=== PATIENT | male | born 1935 | race Caucasian/White ===

== ENCOUNTER 2021-11-17 13:01 | Outpatient (CLI) | payer MEDICARE ==
[2021-11-17 14:16] LABS: Hemoglobin 12.4 g/dL (13.5-17.5); Mean Corpuscular HGB CONC 32.5 g/dL (32.0-36.0); Mean Corpuscular Hemoglobin 28.9 pg (27.0-33.0); Mean Corpuscular Volume 88.8 fl (81.2-95.1); Mean Platelet Volume 10.2 fl (7.4-10.4); Platelet Count 221 10x3/uL (150-450); RBC Distribution Width 13.3 % (11.5-14.5); Red Blood Cell (RBC) Count 4.29 10x6/uL (4.32-5.72)
[2021-11-17 14:35] LABS: Anion Gap 13 mmol/L (10-20); BUN (Urea Nitrogen) 29 mg/dL (8.4-25.7); Calc. Creatinine Clearance 0 mL/min (70-130); Calcium 8.9 mg/dL (7.8-10.44); Carbon Dioxide 23 mmol/L (23-31); Chloride 110 mmol/L (98-107); Estimated GFR 56; Glucose 90 mg/dL (83-110); Potassium 4.6 mmol/L (3.5-5.1); Sodium 141 mmol/L (136-145)
== END 2021-11-17 13:02 | disposition home or self-care (01) ==
LOC: LABBT 13:01
PROVIDERS: ATTEND Otolaryngology Plastic Surgery within the Head & Neck
DX: Z01.818 Encounter for other preprocedural examination (principal); D36.9 Benign neoplasm, unspecified site; L98.9 Disorder of the skin and subcutaneous tissue, unspecified; L81.9 Disorder of pigmentation, unspecified; Z20.822 Contact with and (suspected) exposure to COVID-19
CPT/HCPCS: 80048; 85027; 87811

== ENCOUNTER 2021-11-22 08:41 | Day surgery (SDC) | payer MEDICARE ==
[2021-11-20 12:25] VITALS: BMI 27.1
[2021-11-22] MEDS ORDERED: Oxymetazoline HCl 0.05% (30 ML BOT) ONE ×2 (09:19→10:51)
[2021-11-22] MEDS ORDERED: Lidocaine 1% MPF 2 ML VIAL ONE (09:20)
[2021-11-22] MEDS ORDERED: Bacitracin Zinc Ointment 30 gm TUBE ONE (10:51)
[2021-11-22] MEDS ORDERED: Lidocaine 1% w/Epinephrine 1:200K 30 ML VIAL ONE (10:51)
[2021-11-22] MEDS ORDERED: Famotidine/PF 20 mg/2ml Vial ONE (10:52)
[2021-11-22] MEDS ORDERED: fentaNYL Citrate/PF 100 MCG/2 ML SYRINGE ONE (10:52)
[2021-11-22] MEDS ORDERED: Lidocaine 1% PF 5 ML VIAL ONE (11:06)
[2021-11-22] MEDS ORDERED: ePHEDrine 50 MG/ML VIAL ONE (11:06)
[2021-11-22] MEDS ORDERED: Metoclopramide HCl 10 MG/2 ML VIAL ONE (11:06)
[2021-11-22] MEDS ORDERED: PROPOFOL 200 MG/20 ML VIAL ONE (11:06)
[2021-11-22] MEDS ORDERED: Glycopyrrolate 0.2 MG/ML 5 ML SYRINGE ONE (11:06)
[2021-11-22] MEDS ORDERED: Rocuronium Bromide 10 MG/ML (10ML VIAL) ONE (11:06)
[2021-11-22] MEDS ORDERED: Dexamethasone 20 MG/5 ML VIAL ONE (11:06)
[2021-11-22] MEDS ORDERED: Ondansetron PF 4 MG/2 ML Vial ONE (11:06)
[2021-11-22] MEDS ORDERED: SUGAMMADEX SODIUM 200 MG/2 ML VIAL ONE (11:48)
== END 2021-11-22 13:55 | disposition home or self-care (01) ==
LOC: SDC 08:41
PROVIDERS: ATTEND Otolaryngology Plastic Surgery within the Head & Neck
PROC: 09SM0ZZ Reposition Nasal Septum, Open Approach (ICD-10-PCS; principal; 2021-11-22)
PROC: 09BM0ZZ Excision of Nasal Septum, Open Approach (ICD-10-PCS; 2021-11-22)
DX: D14.0 Benign neoplasm of middle ear, nasal cavity and accessory sinuses (principal); J34.2 Deviated nasal septum; E78.5 Hyperlipidemia, unspecified; I25.10 Atherosclerotic heart disease of native coronary artery without angina pectoris; G47.30 Sleep apnea, unspecified; E78.00 Pure hypercholesterolemia, unspecified; I11.9 Hypertensive heart disease without heart failure; Z87.891 Personal history of nicotine dependence; Z79.82 Long term (current) use of aspirin; Z79.899 Other long term (current) drug therapy; Z88.8 Allergy status to other drugs, medicaments and biological substances
CPT/HCPCS: 88305; J1100; J2405; J2704; J2710; J2765; J3490; S0028

== ENCOUNTER 2023-01-10 11:58 | Outpatient (CLI) | payer MEDICARE ==
[2023-01-10] MEDS ORDERED: Iopamidol 370 76% 100 ML VIAL ONE (15:03)
== END 2023-01-10 11:59 | disposition home or self-care (01) ==
LOC: BICCT 11:58
PROVIDERS: ATTEND Internal Medicine Gastroenterology
DX: R10.9 Unspecified abdominal pain (principal); K52.9 Noninfective gastroenteritis and colitis, unspecified; K21.9 Gastro-esophageal reflux disease without esophagitis; K80.20 Calculus of gallbladder without cholecystitis without obstruction; I72.3 Aneurysm of iliac artery
CPT/HCPCS: 74177; 82565; Q9967

== ENCOUNTER 2024-01-22 17:46 | Inpatient (IN) | payer MEDICARE ==
[2024-01-22 19:54] LABS: Bilirubin Negative (Negative); Blood, Urine Negative (Negative); CAUTI Indications for Culture Alt mental st,lethar; Clarity Clear (Clear); Glucose, Urine (Dipstick) 500 mg/dL (Negative); Ketone, Urine Negative (Negative); Leukocyte Negative Leu/uL (Negative); Nitrite Negative (Negative); Protein, Urine (Dipstick) 50 mg/dL (Neg-Trace); RBC/HPF 0-3 HPF (0-3); Specific Gravity, Urine 1.018 (1.002-1.036); Squamous Epithelial 0-3 HPF (0-3); Urobilinogen Normal mg/dL (Less than 2); WBC/HPF 0-3 HPF (0-3); pH, Urine 5.5 (5.0-9.0)
[2024-01-22 20:00] LABS: Bacteria/HPF Rare-Few HPF (None Seen)
[2024-01-22 20:01] LABS: Urine Culture Reflex No No
[2024-01-22 20:07] LABS: #Basophils 0.05 10x3/uL (0.0-0.2); #Eosinphils Less than 0.03 10x3/uL (0.0-0.7); %Basophils 0.8 % (0.0-1.0); %Eosinophils 0.2 % (0.0-10.0); %Lymphocytes 24.4 % (21.0-51.0); %Monocytes 10.1 % (0.0-10.0); %Neutrophils 64.2 % (42.0-75.0); Hematocrit 39.3 % (42.0-52.0); Hemoglobin 12.7 g/dL (14.0-18.0); Mean Corpuscular HGB CONC 32.3 g/dL (32.0-36.0); Mean Corpuscular Hemoglobin 29.7 pg (27.0-31.0); Mean Corpuscular Volume 91.8 fL (78.0-98.0); Platelet Count 181 10x3/uL (130-400); RBC Distribution Width 13.7 % (11.5-14.5); Red Blood Cell (RBC) Count 4.28 mill/uL (4.70-6.10)
[2024-01-22 20:31] LABS: INR-International Normal Ratio 1.1; Prothrombin Time 14.7 sec (12.0-14.7)
[2024-01-22 20:32] LABS: PTT 29.6 sec (22.9-36.1)
[2024-01-22 20:40] LABS: ALT (SGPT) 19 U/L (8-55); AST (SGOT) 25 U/L (5-34); Albumin 3.7 g/dL (3.4-4.8); Alkaline Phosphatase 81 U/L (40-110); Anion Gap 13 mmol/L (10-20); BUN (Urea Nitrogen) 31 mg/dL (8.4-25.7); CK (CPK) 93 U/L (30-200); Calc. Creatinine Clearance 0 mL/min (70-130); Calcium 9.3 mg/dL (7.8-10.44); Carbon Dioxide 26 mmol/L (23-31); Chloride 102 mmol/L (98-107); Estimated GFR 39; Globulin 3.8 g/dL (2.4-3.5); Glucose 96 mg/dL (83-110); Potassium 4.1 mmol/L (3.5-5.1); Protein, Total 7.5 g/dL (5.8-8.1); Sodium 137 mmol/L (136-145)
[2024-01-22 20:50] LABS: Troponin I 0.016 ng/mL (< 0.028)
[2024-01-22] MEDS ORDERED: Ondansetron ODT 4 MG TAB PO PRN (21:45)
[2024-01-22] MEDS ORDERED: Ondansetron PF 4 MG/2 ML Vial IVP PRN (21:45)
[2024-01-22 23:15] VITALS: BMI 24.6
[2024-01-23 00:07] LABS: Troponin I 0.045 ng/mL (< 0.028)
[2024-01-23 04:29] LABS: #Basophils 0.06 10x3/uL (0.0-0.2); %Basophils 0.9 % (0.0-1.0); %Lymphocytes 33.4 % (21.0-51.0); %Monocytes 10.8 % (0.0-10.0); %Neutrophils 53.3 % (42.0-75.0); Hematocrit 37.6 % (42.0-52.0); Hemoglobin 11.9 g/dL (14.0-18.0); Mean Corpuscular HGB CONC 31.6 g/dL (32.0-36.0); Mean Corpuscular Hemoglobin 29.7 pg (27.0-31.0); Mean Corpuscular Volume 93.8 fL (78.0-98.0); Mean Platelet Volume 9.8 fL (7.4-10.4); Platelet Count 179 10x3/uL (130-400); RBC Distribution Width 13.6 % (11.5-14.5); Red Blood Cell (RBC) Count 4.01 mill/uL (4.70-6.10)
[2024-01-23 04:48] LABS: Troponin I 0.106 ng/mL (< 0.028)
[2024-01-23 04:53] LABS: Anion Gap 13 mmol/L (10-20); BUN (Urea Nitrogen) 32 mg/dL (8.4-25.7); Calc. Creatinine Clearance 36 mL/min (70-130); Calcium 8.6 mg/dL (7.8-10.44); Carbon Dioxide 23 mmol/L (23-31); Chloride 104 mmol/L (98-107); Estimated GFR 39; Glucose 112 mg/dL (83-110); Potassium 4.2 mmol/L (3.5-5.1); Sodium 136 mmol/L (136-145)
[2024-01-23] MEDS: Acetaminophen 325 MG TAB PO PRN (06:16)
[2024-01-23] MEDS: Aspirin 81 mg Enteric Coated Tablet PO SCH (10:00)
[2024-01-23] MEDS: Empagliflozin 10 MG TAB PO SCH (10:10)
[2024-01-23 12:55] LABS: Influenza A by NAA Not Detected (NotDetected); Influenza B by NAA Not Detected (NotDetected); SARS-CoV-2 NAA Rapid Test Not Detected (NotDetected)
[2024-01-23] MEDS: Atorvastatin Calcium 40 MG TAB PO SCH (21:38)
[2024-01-23] MEDS: Mirtazapine 15 MG TAB PO SCH (21:38)
[2024-01-23] MEDS: hydrALAZINE 25 MG TAB PO SCH (21:38)
[2024-01-24 05:05] LABS: #Basophils 0.06 10x3/uL (0.0-0.2); %Eosinophils 10.3 % (0.0-10.0); %Lymphocytes 31.8 % (21.0-51.0); %Monocytes 13.9 % (0.0-10.0); %Neutrophils 42.8 % (42.0-75.0); Hematocrit 36.8 % (42.0-52.0); Hemoglobin 11.7 g/dL (14.0-18.0); Mean Corpuscular HGB CONC 31.8 g/dL (32.0-36.0); Mean Corpuscular Hemoglobin 29.6 pg (27.0-31.0); Mean Corpuscular Volume 93.2 fL (78.0-98.0); Mean Platelet Volume 9.8 fL (7.4-10.4); Platelet Count 180 10x3/uL (130-400); RBC Distribution Width 13.4 % (11.5-14.5); Red Blood Cell (RBC) Count 3.95 mill/uL (4.70-6.10)
[2024-01-24 05:22] LABS: Anion Gap 11 mmol/L (10-20); BUN (Urea Nitrogen) 31 mg/dL (8.4-25.7); Calc. Creatinine Clearance 39 mL/min (70-130); Calcium 8.7 mg/dL (7.8-10.44); Carbon Dioxide 25 mmol/L (23-31); Chloride 105 mmol/L (98-107); Estimated GFR 43; Glucose 125 mg/dL (83-110); Potassium 4.4 mmol/L (3.5-5.1); Sodium 137 mmol/L (136-145)
[2024-01-24] MEDS ORDERED: Empagliflozin 10 MG TAB PO SCH (09:00)
[2024-01-24] MEDS: Ezetimibe 10 MG TAB PO SCH (09:56)
[2024-01-24] MEDS: Aspirin 81 mg Enteric Coated Tablet PO SCH (09:57)
[2024-01-24] MEDS: Cholecalciferol 1,000 UNITS (25 MCG) TAB PO SCH (09:57)
[2024-01-24] MEDS: Ascorbic Acid 500 mg Chewable Tablet PO SCH (09:57)
[2024-01-24] MEDS: Losartan 25 MG TAB PO SCH (09:58)
[2024-01-24 16:04] VITALS: BP 156/70; TEMP 97.5
[2024-01-24] MEDS: hydrALAZINE 25 MG TAB PO SCH (16:16)
[2024-01-25] MEDS ORDERED: Losartan 25 MG TAB PO SCH (21:00)
== END 2024-01-24 19:00 | disposition home or self-care (01) | DRG 866 ==
LOC: ERS 17:46 → 2NO 21:22 → OBSVTOIN 01-24 08:54
PROVIDERS: ADMIT Student in an Organized Health Care Education/Training Program; ATTEND Internal Medicine
DX: T88.1XXA Other complications following immunization, not elsewhere classified, initial encounter (principal); R50.83 Postvaccination fever; R19.7 Diarrhea, unspecified; I25.10 Atherosclerotic heart disease of native coronary artery without angina pectoris; I12.9 Hypertensive chronic kidney disease with stage 1 through stage 4 chronic kidney disease, or unspecified chronic kidney disease; E86.0 Dehydration; I44.0 Atrioventricular block, first degree; E78.5 Hyperlipidemia, unspecified; N18.32 Chronic kidney disease, stage 3b; Z95.5 Presence of coronary angioplasty implant and graft; Z79.82 Long term (current) use of aspirin; Z79.84 Long term (current) use of oral hypoglycemic drugs; Z79.899 Other long term (current) drug therapy; Z88.8 Allergy status to other drugs, medicaments and biological substances; Z95.1 Presence of aortocoronary bypass graft
CPT/HCPCS: 36415; 70450; 71046; 72125; 80048; 80053; 81001; 82550; 84484; 85025; 85610; 85730; 87040; 93005; 93306; 93880

== ENCOUNTER 2025-03-08 11:23 | Inpatient (IN) | payer MEDICARE ==
[~2025-03-08 11:23] MED LIST: Iopamidol-370 76% 500 ML MDV (1 ML CHARGE) ONE
[2025-03-08 12:37] LABS: #Basophils 0.04 10x3/uL (0.0-0.2); #Eosinophils Less than 0.03 10x3/uL (0.0-0.7); #Monocytes 1.26 10x3/uL (0.11-0.59); #Neutrophils 11.04 10x3/uL (1.40-6.50); %Basophils 0.3 % (0.0-1.0); %Eosinophils 0.1 % (0.0-10.0); %Lymphocytes 10.9 % (21.0-51.0); %Monocytes 9.0 % (0.0-10.0); %Neutrophils 78.9 % (42.0-75.0); Hematocrit 38.4 % (42.0-52.0); Hemoglobin 12.6 g/dL (14.0-18.0); Mean Corpuscular Hemoglobin 29.9 pg (27.0-31.0); Mean Corpuscular Volume 91.0 fL (78.0-98.0); Platelet Count 158 10x3/uL (130-400); Red Blood Cell (RBC) Count 4.22 mill/uL (4.70-6.10); White Blood Cell (WBC) Count 14.00 10x3/uL (4.8-10.8)
[2025-03-08] MEDS ORDERED: Acetaminophen 500 MG TAB ONE (12:42)
[2025-03-08 13:00] LABS: ALT (SGPT) 23 U/L (Less than 45); AST (SGOT) 38 U/L (11-34); Albumin 3.8 g/dL (3.1-4.5); Alkaline Phosphatase 76 U/L (40-110); Anion Gap 17 mmol/L (10-20); BUN (Urea Nitrogen) 43 mg/dL (8.4-25.7); Bilirubin, Total 1.2 mg/dL (0.3-1.2); Calc. Creatinine Clearance 0 mL/min (70-130); Calcium 8.8 mg/dL (7.8-10.44); Carbon Dioxide 18 mmol/L (23-31); Chloride 105 mmol/L (98-107); Globulin 3.0 g/dL (2.4-3.5); Glucose 94 mg/dL (83-110); Lipase 17 U/L (8-78); Magnesium 1.7 mg/dL (1.6-2.6); Potassium 4.9 mmol/L (3.5-5.1); Sodium 135 mmol/L (136-145)
[2025-03-08] MEDS ORDERED: Furosemide 40 MG TAB ONE (13:45)
[2025-03-08] MEDS ORDERED: Melatonin 3 MG TAB PO PRN (14:36)
[2025-03-08] MEDS ORDERED: Ondansetron PF 4 MG/2 ML Vial IVP PRN (14:36)
[2025-03-08 18:12] VITALS: BMI 27.0
[2025-03-08] MEDS: cefTRIAXone\\ROCEPHIN 1 GM in Sodium Chloride 0.9% 100 ML IVPB SCH (19:31)
[2025-03-08] MEDS: Azithromycin 500 MG in Sodium Chloride 0.9% 250 ML 250 ML IVPB SCH (19:32)
[2025-03-08] MEDS: Sodium Bicarbonate Tab 325 MG TAB PO SCH (20:44)
[2025-03-08] MEDS: Mirtazapine 15 MG TAB PO SCH (20:44)
[2025-03-08] MEDS ORDERED: Famotidine 20 MG TAB PO SCH (21:00)
[2025-03-08 21:31] LABS: Actual Bicarbonate (HCO3v) 23.3 mEq/L (22-28); Base Excess -4.0 mEq/L (-2.0 to +3.0); Calcium, Ionized (venous) 1.12 mmol/L (1.16-1.32); Chloride (VBG) 101 mmol/L (98-106); Hematocrit-VBG 37 % (42.0-52.0); Hemoglobin (Hb) 12.7 g/dL (12.6-17.4); Potassium (VBG) 4.14 mmol/L (3.70-5.30); Sodium 136 mmol/L (133-146)
[2025-03-09 03:45] LABS: #Basophils 0.06 10x3/uL (0.0-0.2); #Eosinophils 0.09 10x3/uL (0.0-0.7); #Monocytes 1.17 10x3/uL (0.11-0.59); #Neutrophils 9.35 10x3/uL (1.40-6.50); %Basophils 0.5 % (0.0-1.0); %Eosinophils 0.7 % (0.0-10.0); %Lymphocytes 16.8 % (21.0-51.0); %Monocytes 9.0 % (0.0-10.0); %Neutrophils 72.3 % (42.0-75.0); Hematocrit 36.2 % (42.0-52.0); Hemoglobin 11.1 g/dL (14.0-18.0); Mean Corpuscular Hemoglobin 28.9 pg (27.0-31.0); Mean Corpuscular Volume 94.3 fL (78.0-98.0); Platelet Count 159 10x3/uL (130-400); Red Blood Cell (RBC) Count 3.84 mill/uL (4.70-6.10); White Blood Cell (WBC) Count 12.94 10x3/uL (4.8-10.8)
[2025-03-09 04:09] LABS: Anion Gap 15 mmol/L (10-20); BUN (Urea Nitrogen) 47 mg/dL (8.4-25.7); Calc. Creatinine Clearance 34 mL/min (70-130); Calcium 8.8 mg/dL (7.8-10.44); Carbon Dioxide 22 mmol/L (23-31); Chloride 102 mmol/L (98-107); Glucose 88 mg/dL (83-110); Potassium 4.1 mmol/L (3.5-5.1); Sodium 135 mmol/L (136-145)
[2025-03-09] MEDS: Floranex 1 GM Packet PO SCH (08:56)
[2025-03-09] MEDS: Aspirin 81 mg Enteric Coated Tablet PO SCH (08:57)
[2025-03-09] MEDS: Enoxaparin 40 MG (0.4 mL) SYRINGE SC SCH (08:57)
[2025-03-09] MEDS: Ezetimibe 10 MG TAB PO SCH (08:57)
[2025-03-09] MEDS: Pantoprazole 40 MG DR.TAB PO SCH (08:58)
[2025-03-09] MEDS: Multivitamin W/ Minerals 1 TAB PO SCH (08:58)
[2025-03-09] MEDS: Losartan 25 MG TAB PO SCH (08:58)
[2025-03-10] MEDS: Acetaminophen 325 MG TAB PO PRN (00:02)
[2025-03-10 04:02] LABS: Actual Bicarbonate (HCO3v) 25.1 mEq/L (22-28); Base Excess -2.5 mEq/L (-2.0 to +3.0); Calcium, Ionized (venous) 1.12 mmol/L (1.16-1.32); Chloride (VBG) 105 mmol/L (98-106); Hematocrit-VBG 34 % (42.0-52.0); Hemoglobin (Hb) 11.7 g/dL (12.6-17.4); Potassium (VBG) 4.10 mmol/L (3.70-5.30); Sodium 138 mmol/L (133-146)
[2025-03-10 04:05] LABS: #Basophils 0.05 10x3/uL (0.0-0.2); #Eosinophils 0.39 10x3/uL (0.0-0.7); #Monocytes 0.92 10x3/uL (0.11-0.59); #Neutrophils 6.29 10x3/uL (1.40-6.50); %Basophils 0.5 % (0.0-1.0); %Eosinophils 4.0 % (0.0-10.0); %Lymphocytes 19.9 % (21.0-51.0); %Monocytes 9.6 % (0.0-10.0); %Neutrophils 65.4 % (42.0-75.0); Hematocrit 34.1 % (42.0-52.0); Hemoglobin 10.3 g/dL (14.0-18.0); Mean Corpuscular Hemoglobin 28.5 pg (27.0-31.0); Mean Corpuscular Volume 94.2 fL (78.0-98.0); Platelet Count 144 10x3/uL (130-400); Red Blood Cell (RBC) Count 3.62 mill/uL (4.70-6.10); White Blood Cell (WBC) Count 9.63 10x3/uL (4.8-10.8)
[2025-03-10 04:37] LABS: Anion Gap 12 mmol/L (10-20); BUN (Urea Nitrogen) 49 mg/dL (8.4-25.7); Calc. Creatinine Clearance 35 mL/min (70-130); Calcium 8.5 mg/dL (7.8-10.44); Carbon Dioxide 23 mmol/L (23-31); Chloride 106 mmol/L (98-107); Glucose 109 mg/dL (83-110); Potassium 4.0 mmol/L (3.5-5.1); Sodium 137 mmol/L (136-145)
[2025-03-10] MEDS: Enoxaparin 30 MG (0.3 mL) SYRINGE SC SCH (09:35)
[2025-03-11 04:31] LABS: #Basophils 0.05 10x3/uL (0.0-0.2); #Eosinophils 0.55 10x3/uL (0.0-0.7); #Monocytes 0.91 10x3/uL (0.11-0.59); #Neutrophils 4.40 10x3/uL (1.40-6.50); %Basophils 0.7 % (0.0-1.0); %Eosinophils 7.4 % (0.0-10.0); %Lymphocytes 20.3 % (21.0-51.0); %Monocytes 12.2 % (0.0-10.0); %Neutrophils 58.7 % (42.0-75.0); Hematocrit 33.2 % (42.0-52.0); Hemoglobin 10.2 g/dL (14.0-18.0); Mean Corpuscular Hemoglobin 28.9 pg (27.0-31.0); Mean Corpuscular Volume 94.1 fL (78.0-98.0); Platelet Count 150 10x3/uL (130-400); Red Blood Cell (RBC) Count 3.53 mill/uL (4.70-6.10); White Blood Cell (WBC) Count 7.48 10x3/uL (4.8-10.8)
[2025-03-11 04:50] LABS: Anion Gap 11 mmol/L (10-20); BUN (Urea Nitrogen) 37 mg/dL (8.4-25.7); Calc. Creatinine Clearance 42 mL/min (70-130); Calcium 8.4 mg/dL (7.8-10.44); Carbon Dioxide 24 mmol/L (23-31); Chloride 107 mmol/L (98-107); Glucose 106 mg/dL (83-110); Potassium 3.7 mmol/L (3.5-5.1); Sodium 138 mmol/L (136-145)
[2025-03-11] MEDS: Spironolactone 25 MG TAB PO SCH (10:23)
[2025-03-11] MEDS: Furosemide 100 MG (10 mL) VIAL SLOW IVP SCH (23:46)
[2025-03-12 04:46] LABS: Anion Gap 16 mmol/L (10-20); BUN (Urea Nitrogen) 31 mg/dL (8.4-25.7); Calc. Creatinine Clearance 45 mL/min (70-130); Calcium 9.5 mg/dL (7.8-10.44); Carbon Dioxide 23 mmol/L (23-31); Chloride 105 mmol/L (98-107); Glucose 113 mg/dL (83-110); Potassium 3.9 mmol/L (3.5-5.1); Sodium 140 mmol/L (136-145)
[2025-03-12] MEDS: Furosemide 100 MG (10 mL) VIAL SLOW IVP SCH (06:04)
[2025-03-12] MEDS: Enoxaparin 40 MG (0.4 mL) SYRINGE SC SCH (08:40)
[2025-03-12] MEDS: Spironolactone 25 MG TAB PO SCH (08:41)
[2025-03-12 16:06] VITALS: BP 135/56; TEMP 98
== END 2025-03-12 16:46 | disposition home health service (06) | DRG 871 ==
LOC: ERS 11:23 → SUATTDRO 11:23 → PCU 14:39
PROVIDERS: ADMIT Internal Medicine; ATTEND Family Medicine
DX: A41.9 Sepsis, unspecified organism (principal); I50.33 Acute on chronic diastolic (congestive) heart failure; J18.9 Pneumonia, unspecified organism; J96.01 Acute respiratory failure with hypoxia; I13.0 Hypertensive heart and chronic kidney disease with heart failure and stage 1 through stage 4 chronic kidney disease, or unspecified chronic kidney disease; E87.20 Acidosis, unspecified; R65.20 Severe sepsis without septic shock; E78.5 Hyperlipidemia, unspecified; I25.10 Atherosclerotic heart disease of native coronary artery without angina pectoris; N18.30 Chronic kidney disease, stage 3 unspecified; K21.9 Gastro-esophageal reflux disease without esophagitis; G47.00 Insomnia, unspecified; Z98.890 Other specified postprocedural states; Z90.89 Acquired absence of other organs; Z91.09 Other allergy status, other than to drugs and biological substances; Z88.8 Allergy status to other drugs, medicaments and biological substances; Z79.899 Other long term (current) drug therapy; Z79.82 Long term (current) use of aspirin; Z95.5 Presence of coronary angioplasty implant and graft; Z99.81 Dependence on supplemental oxygen
CPT/HCPCS: 36415; 71045; 71275; 80048; 80053; 82805; 83605; 83690; 83735; 83880; 84145; 84484; 85025; 87040; 87428; 93005; 93306; 96365; 96366; J0456; J0696; J1650; J1940; J2543; J7030; J7050; Q9967